=== PATIENT | female | born 1990 | race Caucasian/White ===

== ENCOUNTER 2021-07-12 15:47 | Observation (INO) | payer OTHER ==
[2021-07-12 17:16] LABS: BASO % 0.6 % (0-2.0); HEMATOCRIT 32.8 % (32.4-45.2); HEMOGLOBIN 10.9 GM/dL (10.7-15.3); LYMPH % 36.2 % (8-40); MCH 27.9 pg (25.7-33.7); MCHC 33.2 g/dl (32.0-36.0); MEAN CELL VOLUME 84.1 fl (80-96); MEAN PLT VOLUME 7.6 fl (7.5-11.1); MONO % 14.3 % (3.8-10.2); NEUT % 47.9 % (42.8-82.8); PLATELET COUNT 304 10^3/uL (134-434); RBC 3.91 M/mm3 (3.60-5.2); RDW 15.4 % (11.6-15.6)
[2021-07-12 17:40] LABS: CHLORIDE 108 mmol/L (98-107); SODIUM 141 mmol/L (136-145)
[2021-07-12 17:44] LABS: ALBUMIN 2.8 g/dl (3.4-5.0); CALCIUM 8.1 mg/dL (8.5-10.1)
[2021-07-12 17:45] LABS: ANION GAP 8 MMOL/L (8-16); BLOOD UREA NITROGEN 12.3 mg/dL (7-18); CO2 26 mmol/L (21-32); GLUCOSE,RANDOM 85 mg/dL (74-106)
[2021-07-12 17:48] LABS: CREATININE 0.9 mg/dL (0.55-1.3); SGOT/AST 22 U/L (15-37); SGPT/ALT 23 U/L (13-61)
[2021-07-12 17:50] LABS: BILIRUBIN,TOTAL 0.2 mg/dL (0.2-1); TOT PROT 6.5 g/dl (6.4-8.2)
[2021-07-12 17:51] LABS: ALK PHOS 72 U/L (45-117)
[2021-07-12 18:34] LABS: EPI CELLS 6 /uL (0-25.1); HYALINE CASTS 1 /uL (0-3.1); URINE APPEARANCE CLEAR; URINE BACTERIA 30 /uL (0-1359); URINE BILIRUBIN NEGATIVE (NEGATIVE); URINE COLOR DK YELLOW; URINE GLUCOSE (UA) NEGATIVE (NEGATIVE); URINE KETONE TRACE (NEGATIVE); URINE LEUK ESTERASE NEGATIVE (NEGATIVE); URINE NITRITE NEGATIVE (NEGATIVE); URINE PROTEIN NEGATIVE (NEGATIVE); URINE RBC 3 /uL (0-23.9); URINE WBC 3 /uL (0-25.8)
[2021-07-12] MEDS ORDERED: SODIUM CHLORIDE 0.9% 500 ML INFUS.BAG IV ONE (19:50)
[2021-07-12] MEDS ORDERED: VALPROATE SODIUM 500 MG/5 ML VIAL IVPB ONE (22:19)
[2021-07-13] MEDS ORDERED: diazePAM RECTAL GEL 10 MG KIT (PRE-CALIBRATED) RC SCH (10:00)
[2021-07-13] MEDS ORDERED: ZINC SULFATE 220 MG CAPSULE (FP) PO SCH (10:00)
[2021-07-13] MEDS ORDERED: PATIENT'S OWN MEDICATION (NON-FORMULARY) (Midazolam [Nayzilam] 5 MG/0.1 ML Spray) NS SCH (10:00)
[2021-07-13] MEDS ORDERED: SENNOSIDES 8.6MG TABLET (FP) PO SCH (10:00)
[2021-07-13] MEDS ORDERED: SENNOSIDES 15 MG PO SCH (10:00)
[2021-07-13] MEDS ORDERED: PATIENT'S OWN MEDICATION (NON-FORMULARY) (Rufinamide 400 MG Tablet) PO SCH (10:00)
[2021-07-13] MEDS ORDERED: clonazePAM 2 MG TABLET PO SCH (10:00)
[2021-07-13] MEDS ORDERED: LACOSAMIDE 100 MG PO SCH (10:00)
[2021-07-13] MEDS: ENOXAPARIN NA (PORCINE) 40 MG/0.4 ML DISP.SYRIN SQ SCH (10:03)
[2021-07-13] MEDS ORDERED: LACOSAMIDE 50 MG TABLET PO ONE ×2 (10:42→20:38)
[2021-07-13] MEDS ORDERED: LACOSAMIDE 200 MG TABLET PO ONE ×2 (10:44→20:38)
[2021-07-13] MEDS: MULTIVITAMINS (DAILY MVI) TABLET (FP) PO SCH (11:17)
[2021-07-13] MEDS: DOCUSATE SODIUM 100 MG CAPSULE (FP) PO SCH ×2 (11:17→22:17)
[2021-07-13] MEDS: GABAPENTIN 300 MG CAPSULE PO SCH ×2 (11:17→22:17)
[2021-07-13] MEDS: VITAMIN B COMPLEX W/C COMBO TABLET (FP) PO SCH (11:18)
[2021-07-13] MEDS: LACOSAMIDE PO SCH ×2 (11:18→22:18)
[2021-07-13] MEDS ORDERED: SENNOSIDES 8.6MG TABLET (FP) PO PRN (11:47)
[2021-07-13] MEDS: clonazePAM 2 MG TABLET PO SCH ×3 (12:11→23:33)
[2021-07-13] MEDS: SENNOSIDES 8.6MG TABLET (FP) PO SCH (12:11)
[2021-07-13] MEDS: ZINC SULFATE 220 MG CAPSULE (FP) PO SCH (12:11)
[2021-07-13] MEDS ORDERED: diazePAM CARPU-JECT 10 MG/2 ML DISP.SYRIN IVPUSH PRN (13:30)
[2021-07-13] MEDS ORDERED: DIVALPROEX SODIUM 500 MG TABLET E.C. PO SCH ×2 (22:00)
[2021-07-13] MEDS ORDERED: PERAMPANEL 4 MG PO SCH (22:00)
[2021-07-14] MEDS: clonazePAM 2 MG TABLET PO SCH ×2 (06:11→12:50)
[2021-07-14] MEDS ORDERED: DIVALPROEX SODIUM 500 MG TABLET E.C. PO SCH ×2 (06:53→07:00)
[2021-07-14 07:40] LABS: BASO % 0.4 % (0-2.0); EOS % 1.7 % (0-4.5); HEMATOCRIT 33.2 % (32.4-45.2); HEMOGLOBIN 10.8 GM/dL (10.7-15.3); LYMPH % 40.6 % (8-40); MCH 27.5 pg (25.7-33.7); MCHC 32.6 g/dl (32.0-36.0); MEAN CELL VOLUME 84.4 fl (80-96); MONO % 11.5 % (3.8-10.2); NEUT % 45.8 % (42.8-82.8); PLATELET COUNT 278 10^3/uL (134-434); RBC 3.93 M/mm3 (3.60-5.2); RDW 15.4 % (11.6-15.6)
[2021-07-14 07:54] LABS: CALCIUM 8.5 mg/dL (8.5-10.1)
[2021-07-14 07:55] LABS: BLOOD UREA NITROGEN 11.5 mg/dL (7-18); MAGNESIUM 1.9 mg/dL (1.8-2.4)
[2021-07-14 07:57] LABS: CREATININE 0.6 mg/dL (0.55-1.3)
[2021-07-14 07:59] LABS: PHOSPHOROUS 4.1 mg/dL (2.5-4.9)
[2021-07-14] MEDS ORDERED: LACOSAMIDE 50 MG TABLET PO ONE (09:24)
[2021-07-14] MEDS ORDERED: LACOSAMIDE 200 MG TABLET PO ONE (09:25)
[2021-07-14] MEDS ORDERED: PT OWN MED DRAWER 7, Y5N ONE (09:27)
[2021-07-14] MEDS: GABAPENTIN 300 MG CAPSULE PO SCH (09:47)
[2021-07-14] MEDS: VITAMIN B COMPLEX W/C COMBO TABLET (FP) PO SCH (09:47)
[2021-07-14] MEDS: DOCUSATE SODIUM 100 MG CAPSULE (FP) PO SCH (09:47)
[2021-07-14] MEDS: SENNOSIDES 8.6MG TABLET (FP) PO SCH (09:47)
[2021-07-14] MEDS: MULTIVITAMINS (DAILY MVI) TABLET (FP) PO SCH (09:47)
[2021-07-14] MEDS: ZINC SULFATE 220 MG CAPSULE (FP) PO SCH (09:47)
[2021-07-14] MEDS: LACOSAMIDE PO SCH (09:48)
[2021-07-14] MEDS: ENOXAPARIN NA (PORCINE) 40 MG/0.4 ML DISP.SYRIN SQ SCH (09:48)
[2021-07-14] MEDS ORDERED: DIVALPROEX SODIUM 125 MG TABLET E.C. PO SCH (10:00)
[2021-07-14] MEDS ORDERED: DIVALPROEX 500 MG, DIVALPROEX 250 MG PO SCH (10:00)
[2021-07-14 15:03] VITALS: BP 107/52; PULSE 62; TEMP 98.1
[2021-07-14 17:40] VITALS: BMI 22.3
== END 2021-07-14 17:07 ==
LOC: JER 15:47 → JERBED 22:09 → J4W 07-13 03:57
PROVIDERS: ADMIT Internal Medicine
PROC: 3E023GC Introduction of Other Therapeutic Substance into Muscle, Percutaneous Approach (ICD-10-PCS; principal; 2021-07-12)
PROC: 3E0337Z Introduction of Electrolytic and Water Balance Substance into Peripheral Vein, Percutaneous Approach (ICD-10-PCS; 2021-07-12)
PROC: 3E033GC Introduction of Other Therapeutic Substance into Peripheral Vein, Percutaneous Approach (ICD-10-PCS; 2021-07-12)
DX: F84.0 Autistic disorder (principal); R56.9 Unspecified convulsions; R62.50 Unspecified lack of expected normal physiological development in childhood; F90.9 Attention-deficit hyperactivity disorder, unspecified type; Z29.9 Encounter for prophylactic measures, unspecified
CPT/HCPCS: 36415; 70450-TC; 80048; 80053; 80061; 80164; 81003; 82550; 82962; 83735; 84100; 84443; 84484; 84703; 85025; 87086; 93005; 93010; 96372; 96374; 97116-GP; 97162-GP; 99285-25; C9803; G0378; U0003; U0005